=== PATIENT | female | born 1960 | race Caucasian/White ===

== ENCOUNTER 2020-02-01 14:09 | Outpatient (CLI) | payer OTHER, SELFPAY ==
--- NOTE | 2020-02-01 14:15 | CT_ITS ---
WS: [id number] CT CHEST TECHNIQUE: Contrast enhanced CT of the chest with coronal and sagittal reformatted images. CLINICAL INFORMATION: ABNORMAL CXR COMPARISON: None. DLP: 1171.[address] scans at [facility] use at least one of these dose optimization techniques: automat ed exposure control; mA and/or kV adjustment per patient size (includes targeted exams where dose is matched to clinical indication); or iterative reconstruction. FINDINGS: Mild chronic emphysematous changes. Calcified granulomas Left lower lobe. Calcified hilar nodes. Slig ht hazy atelectasis in the lingula. Subsegmental atelectasis in the right middle lobe. Slight pleural nodularity left lower lobe. Chronic right fifth and sixth anterior lateral rib fractures with callus formation. Proximal main pulmonary arteries are normal. Normal thoracic aorta. Diffuse fatty infiltration of the liver. Adrenal glands are normal. Small right renal cysts. Small es ophageal hiatal hernia. No axillary lymphadenopathy. CT/CT chest w con* [id number] IMPRESSION: 1. Mild chronic emphysematous changes. No acute pulmonary infiltrates. 2. No acute appearing rib fractures. Chronic appearing right anterolateral fif th and sixth rib fractures with callus formation. 3. Calcified granulomas. 4. No mediastinal or hilar lymphadenopathy.
[2020-02-01] MEDS: iohexol 300 mg/mL 100 mL Btl IV (14:54)
== END 2020-02-01 14:10 | disposition home or self-care (01) ==
LOC: RADWPI 14:10
PROVIDERS: Family Provider Family Medicine; PCP Nurse Practitioner; Visit Provider Nurse Practitioner
DX: R93.89 Abnormal findings on diagnostic imaging of other specified body structures (principal)
CPT/HCPCS: 71260; Q9967

== ENCOUNTER 2020-04-26 14:35 | Outpatient (RCR) | payer OTHER, SELFPAY | END 2020-05-03 23:59 | disposition home or self-care (01) | LOC: SPT 14:35 | PROVIDERS: PCP Nurse Practitioner; Referring Provider Nurse Practitioner; Visit Provider Nurse Practitioner | DX: M54.6 Pain in thoracic spine (principal) | CPT/HCPCS: 97110; 97161 ==

== ENCOUNTER 2020-07-05 09:41 | Outpatient (CLI) | payer OTHER, SELFPAY ==
--- NOTE | 2020-07-05 09:51 | XR_ITS ---
WS: [id number] CERVICAL SPINE 3 VIEWS HISTORY: PAIN DECREASE ROM COMPARISON: None available. Normal cervical alignment with no fracture or destructive process. Disc spaces and vertebral body heights are well-maintained. Soft tissues are normal. Postsurgical hardware is noted over the posterior occipital region. XR/XR cervical spine 3V* [id number] IMPRESSION: No significant cervical spine disease.
--- NOTE | 2020-07-05 09:51 | XR_ITS ---
WS: [id number] RIGHT ANKLE: 2 VIEW(S) TECHNIQUE: AP and lateral. HISTORY: Pain with decreased range of motion. COMPARISON: None available. Normal anatomic alignment with no fracture or dislocation. No asymmetry. No fracture. No osteochondral lesion. No significant degenerative changes at the joint spaces. Small calcaneal spur measures 7 mm. XR/XR ankle RT 2V [id number] IMPRESSION: Small calcaneal spur. No fracture.
== END 2020-07-05 09:42 | disposition home or self-care (01) ==
LOC: RAD 09:46
PROVIDERS: PCP Nurse Practitioner; Visit Provider Dermatology
DX: M25.571 Pain in right ankle and joints of right foot (principal); M54.2 Cervicalgia; M77.31 Calcaneal spur, right foot
CPT/HCPCS: 72040; 73600

== ENCOUNTER 2020-10-06 10:25 | Outpatient (CLI) | payer OTHER, SELFPAY ==
[2020-10-06 11:00] VITALS: BMI 38.6
--- NOTE | 2020-10-06 11:01 | ECG_ITS ---
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 Interpretive Statements NAME OF STUDY: LEXISCAN SESTAMIBI STRESS TEST INDICATION: [Chest Pain] Procedure: The baseline blood pressure was 170/98 mmHg with a heart rate of 67 bpm. The electrocardiogram showed normal sinus rhythm with normal ST and T's. The Lexiscan was infused for a duration of 20 seconds. A total of 0.4 mg of Lexiscan was infused. The stress phase was continued for a total of 5 minutes. Heart rate at end of stress phase was 78 bpm, with a blood pressure 143/81 mmHg. The EKG at the peak infusion revealed sinus rhythm with no significant ST-T wave changes. Sestamibi was injected 20 seconds after Lexiscan infusion. Blood pressure at the end of recovery phase was 152/86 mmHg with a heart rate of 76 bpm. No significant changes during recovery phase. Conclusion: 1. Normal EKG response to Lexiscan infusion. 2. No Lexiscan induced chest pain or cardiac arrhythmia. 3. Normal blood pressure and heart rate response. 4. Sestamibi/sestamibi perfusion scan pending; see separate report. Electronically Signed On 10-06-2020 18:55:53 RESEARCH ENVIRONMENTAL ENGINEER by Bob Schultz M.D. [id number]
--- NOTE | 2020-10-06 11:01 | NMCV_ITS ---
NM yo perf SPECT r/s* [id number] Lolly Levy Age: 59 Gender: F : 1960 Exam Date: 10/06/2020 11:01 Ordering Phys: Bob Schultz M.D ([email or web address]) Technologist: CISCO Cornejo Exam Location: [facility] Indications: CHEST PAIN STRESS TEST Please see separate stress test report in Ephiphany for full findings IMAGE PROTOCOL Rest/Stress 1 Lexiscan Day Radiopharmaceutical Dose (mCi) Administration Site Administered by Rest: Tc-99m 10.5 IV CISCO Oneal Sestamibi Stress:Tc-99m 32.6 IV CISCO Cornejo Sestamicarina Rest: 06-Oct-2020 60 Discovery 630 Stress: 06-Oct-2020 30 Discovery 630 0.4mg Lexiscan. Supine position only as patient was unable to lay prone. SPECT RESULTS Technical Quality: Excellent Raw Data Analysis: Normal Image Corrections: No attenuation or motion correction applied Summed Stress Score: 3 Summed Rest Score: 4 Summed Difference Score: 1 PERFUSION FINDINGS There is persistent defect perfusion defect of apical wall both on rest and stress. This represents prior infarct vs attenuation artifact. No evidence of ischemia is noted. FUNCTIONAL RESULTS (calculated via Gated SPECT) Stress Image LV EF (%): 73 Stress EDV (mL):77 TID: 1.26 Stress ESV (mL):21 FUNCTIONAL FINDINGS: There is normal left ventricular systolic function. Elevated transient ischemic dilation ratio of 1.26 is noted. IMPRESSIONS 1. Fixed perfusion defect of apical wall is noted. This likely represents prior infarct or attenuation artifact. No evidence of ischemia is noted. 2. LV systolic function is normal with EF of 73%. 3. Elevated transient ischemic dilation ratio of 1.26 is noted. This could represent subendocardial ischemia. Clinical correlation is needed. Bob Schultz MD (Electronically Signed) Final Date: 06 October 2020 17:00 S
--- NOTE | 2020-10-06 12:42 | SUR.PREOP ---
Patient reports no pain or discomfort prior to the start of the procedure.
[2020-10-06] MEDS: regadenoson 0.4 Mg/5 ml Syringe IVP (12:43)
[2020-10-06 13:56] VITALS: BP 154/83; PULSE 83
== END 2020-10-06 10:26 | disposition home or self-care (01) ==
LOC: RAD 10:33 → CDL 10:57
PROVIDERS: PCP Nurse Practitioner; Visit Provider Internal Medicine
DX: R07.9 Chest pain, unspecified (principal)
CPT/HCPCS: 78452; 93017; A9500; J2785

== ENCOUNTER 2021-03-01 13:48 | Outpatient (CLI) | payer OTHER, SELFPAY ==
--- NOTE | 2021-03-01 13:56 | MM_ITS ---
WS: [id number] BILATERAL SCREENING DIGITAL MAMMOGRAM WITH CAD HISTORY: SCREENING COMPARISON: 08/06/2018 and 01/30/2017 Bilateral CC and MLO views submitted. Computer aided detection analyzed. Breast composition: There are scattered areas of fibroglandular density. No suspicious masses, microc alcifications or architectural distortion. Asymmetry in the posterior central LEFT breast seen best o n the CC projection is stable over multiple prior years. Benign calcifications in each breast. MM/[place] [id number] IMPRESSION: BI-RADS: 2-Benign FOLLOW UP: 1 Year Follow-up
== END 2021-03-01 13:49 | disposition home or self-care (01) ==
LOC: RADSHAW 13:52
PROVIDERS: PCP Nurse Practitioner; Visit Provider Nurse Practitioner
DX: Z12.31 Encounter for screening mammogram for malignant neoplasm of breast (principal)
CPT/HCPCS: 77067

== ENCOUNTER → 2021-06-05 15:25 | Outpatient (BNVA) | payer OTHER, SELFPAY | PROVIDERS: PCP Nurse Practitioner; Visit Provider Internal Medicine | DX: E78.5 Hyperlipidemia, unspecified (principal); E11.9 Type 2 diabetes mellitus without complications; R07.9 Chest pain, unspecified | CPT/HCPCS: 80048; 83735 ==

== ENCOUNTER → 2022-01-02 13:51 | Outpatient (BNVA) | payer OTHER, SELFPAY | PROVIDERS: PCP Nurse Practitioner; Visit Provider Internal Medicine | DX: E78.5 Hyperlipidemia, unspecified (principal); E11.9 Type 2 diabetes mellitus without complications; R07.9 Chest pain, unspecified | CPT/HCPCS: 99213 ==

== ENCOUNTER → 2022-07-10 13:01 | Outpatient (BNVA) | payer OTHER, SELFPAY | PROVIDERS: PCP Nurse Practitioner; Visit Provider Internal Medicine | DX: R07.9 Chest pain, unspecified (principal); E78.5 Hyperlipidemia, unspecified; E11.9 Type 2 diabetes mellitus without complications | CPT/HCPCS: 99214 ==

== ENCOUNTER 2022-12-27 15:06 | Outpatient (CLI) | payer OTHER, SELFPAY ==
--- NOTE | 2022-12-27 15:13 | MM_ITS ---
WS: [id number] BILATERAL 3D TOMOSYNTHESIS DIGITAL SCREENING MAMMOGRAPHY WITH CAD CLINICAL INFORMATION: SCREENING HISTORY: Screening mammogram. No current complaints. COMPARISON: March 01, 2021 TECHNIQUE: Bilateral CC and MLO views. FINDINGS: Scattered fibroglandular densities bilaterally. No suspicious focal mass, asymmetry, calcifications, or architectural distortion. No evidence of malignancy. A few incidental punctate calcifications. MM/[place] [id number] IMPRESSION: BI-RADS: 2-Benign FOLLOW UP: 1 Year Follow-up Recommend return to annual screening mammography.
== END 2022-12-27 15:07 | disposition home or self-care (01) ==
PROVIDERS: PCP Nurse Practitioner; Visit Provider Nurse Practitioner
DX: Z12.31 Encounter for screening mammogram for malignant neoplasm of breast (principal)
CPT/HCPCS: 77063; 77067

== ENCOUNTER → 2023-01-08 13:13 | Outpatient (BNVA) | payer OTHER, SELFPAY | PROVIDERS: PCP Nurse Practitioner; Visit Provider Nurse Practitioner Family | DX: Z87.898 Personal history of other specified conditions (principal); I10 Essential (primary) hypertension; Z79.82 Long term (current) use of aspirin | CPT/HCPCS: 99213 ==

== ENCOUNTER 2023-04-09 14:13 | Emergency (ER) | payer OTHER, SELFPAY ==
--- NOTE | 2023-04-09 14:23 | ECG_ITS ---
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 Measurements Intervals [place] Rate: 71 P: 36 ID: 170 QRS: 72 QRSD: 94 T: 5 QT: 385 QTc: 421 Interpretive Statements SINUS RHYTHM No previous ECG available for comparison Electronically Signed On 04-09-2023 16:49:57 CDT by Marita Garay M.D. [id number]
[2023-04-09 14:25] VITALS: BP 160/100; PULSE 74; RESP 14; TEMP 36.7; O2SAT 96; BMI 35.4
--- NOTE | 2023-04-09 14:27 | XRR_ITS ---
PROCEDURE INFORMATION: Exam: XR Chest Exam date and time: 04/09/2023 2:35 PM Age: 62 years old Clinical indication: Abnormal findings; Abnormal ekg; Prior surgery; Surgery date: 6+ months; Surgery type: Breast; Additional info: Chest pain TECHNIQUE: Imaging protocol: Radiologic exam of the chest. Views: 1 view. COMPARISON: CT chest w con* [id number] 02/01/2020 2:43 PM FINDINGS: Lungs: There is a granuloma in the left perihilar region. No consolidation. Pleural spaces: Unremarkable. No pleural effusion. No pneumothorax. Heart/Mediastinum: Unremarkable. No cardiomegaly. Bones/joints: Unremarkable. XR/XR chest 1V portable [id number] IMPRESSION: 1. No acute findings. 2. Stable left lung granuloma
[2023-04-09 14:32] VITALS: BP 157/94; PULSE 70; TEMP 36.6; O2SAT 96
[2023-04-09 15:17] LABS: Basophils # 0.1 10^3/uL (0.0-0.1); Basophils % 1.1 %; Eosinophils # 0.2 10^3/uL (0.0-0.8); Eosinophils % 2.6 %; Hematocrit 44.8 % (37.0-47.0); Hemoglobin 14.5 g/dL (11.5-15.3); Lymphocytes # 2.2 10^3/uL (0.8-4.8); Lymphocytes % 32.7 %; Mean Corpuscular HGB Conc 32.4 g/dL (30.0-36.0); Mean Corpuscular Hemoglobin 29.2 pg (28.0-34.0); Mean Corpuscular Volume 90.1 fl (81-99); Mean Platelet Volume 10.6 fL (7.4-10.4); Monocytes # 0.5 10^3/uL (0.2-0.9); Monocytes % 7.5 %; Neutrophils % 55.8 %; Nucleated Red Blood Cells % 0 %; Platelet Count 240 10^3/cmm (130-400); Red Blood Count 4.97 10^6/uL (4.1-5.3); Red Cell Distribution Width 12.3 % (12.1-15.1); White Blood Count 6.6 10^3/uL (4.0-10.0)
[2023-04-09 15:36] LABS: Troponin(5th) Baseline 6 ng/L (0-10)
[2023-04-09 15:48] LABS: Alanine Aminotransferase 30 U/L (0-33); Albumin Level 3.9 g/dL (3.5-5.2); Alkaline Phosphatase 146 U/L (35-105); Anion Gap 17.9 (5-19); Aspartate Amino Transferase 19 U/L (0-32); Blood Urea Nitrogen 12 mg/dL (8-23); Calcium 9.4 mg/dL (8.5-10.5); Carbon Dioxide 21 mmol/L (22-29); Chloride 99 mmol/L (98-107); Globulin 3.6 g/dL (1.3-4.6); Glomerular Filtration Rate 125.9 mL/min (90-130); Glucose 325 mg/dL (65-115); Osmolality Calculated 290 mOsm/kg (285-295); Potassium 3.9 mmol/L (3.5-5.1); Sodium 134 mmol/L (136-145); Total Bilirubin 0.4 mg/dL (0.15-1.2); Total Protein 7.5 g/dL (6.6-8.7)
--- NOTE | 2023-04-09 16:27 | ECG_ITS ---
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 Measurements Intervals [place] Rate: 63 P: 41 NC: 171 QRS: 65 QRSD: 88 T: 9 QT: 408 QTc: 418 Interpretive Statements SINUS RHYTHM Compared to ECG 04/09/2023 14:23:54 No significant changes Electronically Signed On 04-10-2023 6:23:46 CDT by Marita Garay M.D. [id number]
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
--- NOTE | 2023-04-09 17:29 | CTR_ITS ---
PROCEDURE INFORMATION: Exam: CT Head Without Contrast Exam date and time: 04/09/2023 5:41 PM Age: 62 years old Clinical indication: Pain; Headache; Prior surgery; Surgery date: 6+ months; Surgery type: Tumor removed; Additional info: Headaches, HX of brain tumor TECHNIQUE: Imaging protocol: Computed tomography of the head without contrast. Radiation optimization: All CT scans at this facility use at least one of these dose optimization techniques: automated exposure control; mA and/or kV adjustment per patient size (includes targeted exams where dose is matched to clinical indication); or iterative reconstruction. REPORTING DATA: Count of CT and Cardiac NM exams in prior 12 months: This patient has received 0 known CTs and 0 known cardiac nuclear medicine studies in the 12 months prior to the current study. COMPARISON: CT head wo con* [id number] 06/04/2019 8:02 PM RADIATION DOSE METRICS: Total DLP (mGy-cm): 1036.28 FINDINGS: Brain: Normal. No hemorrhage. Unremarkable white matter. No mass effect. Cerebral ventricles: No ventriculomegaly. Paranasal sinuses: Visualized sinuses are unremarkable. No fluid levels. Mastoid air cells: Visualized mastoid air cells are well aerated. Bones/joints: There is a craniotomy defects seen in the left occipital bone stable since prior examination. Of call This finding was No acute fracture. Soft tissues: Unremarkable. Other findings: No interval changes are noted comparing to prior examination CT/CT head wo con* [id number] IMPRESSION: 1. No acute intracranial abnormality. 2. Craniotomy defect left occipital bone stable since prior
[2023-04-09 17:55] LABS: Estmated Average Glucose 301; Hemoglobin A1C 12.1 % (4.0-6.0)
[2023-04-09 18:09] LABS: Troponin 5 2HR Delta 0 ABS# (0-10)
== END 2023-04-09 19:15 | disposition home or self-care (01) ==
PROVIDERS: Physician Assistant; Emergency Provider Emergency Medicine; PCP Nurse Practitioner
DX: R07.89 Other chest pain (principal); E11.9 Type 2 diabetes mellitus without complications
CPT/HCPCS: 36415; 70450; 71045; 80053; 83036; 84484; 85025; 93005; 99285

== ENCOUNTER 2023-05-03 09:21 | Outpatient (CLI) | payer OTHER, SELFPAY ==
[2023-05-03 09:33] VITALS: BMI 35.4
--- NOTE | 2023-05-03 09:35 | NMCV_ITS ---
NM yo perf SPECT r/s* [id number] Lolly Levy Age: 62 Gender: F : 1960 Exam Date: 05/03/2023 09:35 Ordering Phys: Babs Contreras Technologist: CISCO Cornejo Exam Location: [facility] Indications: CHEST PAIN STRESS TEST Please see separate stress test report in Ephiphany for full findings IMAGE PROTOCOL Rest/Stress 1 Lexiscan Day Radiopharmaceutical Dose (mCi) Administration Site Administered by Rest: Tc-99m 10.6 IV Olman Sultana, SHIP WASHER Sestamibi Stress:Tc-99m 32.6 IV Olman Sultana, SHIP WASHER Sestamibi Rest: 03-May-2023 60 Discovery 630 Stress: 03-May-2023 30 Discovery 630 0.4mg Lexiscan. Images obtained in supine and prone position. SPECT RESULTS Technical Quality: Excellent Raw Data Analysis: Normal Image Corrections: No attenuation or motion correction applied Summed Stress Score: 2 Summed Rest Score: 7 Summed Difference Score: 0 PERFUSION FINDINGS There is a small in size fixed perfusion defect noted in apical wall. This is consistent with small sized prior infarct in LAD territory. No evidence of ischemia. FUNCTIONAL RESULTS (calculated via Gated SPECT) Stress Image LV EF (%): 74 Stress EDV (mL):74 TID: 0.91 Stress ESV (mL):19 FUNCTIONAL FINDINGS: There is normal left ventricular systolic function. IMPRESSIONS 1. Small sized prior infarct noted in the LAD territory. No evidence of ischemia 2. LV systolic function is normal Bob Schultz MD (Electronically Signed) Final Date: 04 May 2023 13:46 S
--- NOTE | 2023-05-03 09:35 | ECG_ITS ---
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 Interpretive Statements NAME OF STUDY: LEXISCAN SESTAMIBI STRESS TEST INDICATION: [Chest Pain, ] Procedure: At the baseline, the blood pressure was 134/89 mmHg with a heart rate of 61 bpm. The electrocardiogram showed normal sinus rhythm, normal axis with normal ST and T's. The Lexiscan was infused over a period of 20 seconds. A total of 0.4 mg of Lexiscan was infused. The stress phase was continued for a total of 5 minutes. Heart rate was at the end of stress phase was 67 bpm and a blood pressure of 126/86 mmHg. The EKG at the peak infusion revealed normal sinus rhythm with no significant ST-T wave changes. Sestamibi was injected 20 seconds after the Lexiscan infusion. Blood pressure at the end of recovery phase was 132/85 mmHg with a heart rate of 70 bpm. Conclusion: 1. Normal EKG response to Lexiscan infusion 2. No Lexiscan induced chest pain or cardiac arrhythmia. 3. Normal blood pressure and heart rate response. 4. Sestamibi/sestamibi perfusion scan pending; see separate report. Electronically Signed On 05-04-2023 14:23:40 CDT by Bob Schultz M.D. [id number]
[2023-05-03] MEDS: regadenoson 0.4 Mg/5 ml Syringe IVP (11:20)
[2023-05-03 11:31] VITALS: BP 132/85; PULSE 71
== END 2023-05-03 09:22 | disposition home or self-care (01) ==
LOC: CDL 09:23
PROVIDERS: PCP Nurse Practitioner; Visit Provider Nurse Practitioner
DX: R07.9 Chest pain, unspecified (principal); I25.2 Old myocardial infarction
CPT/HCPCS: 36415; 78452; 93017; 96374; A9500; J2785

== ENCOUNTER → 2023-05-14 13:45 | Outpatient (BNVA) | payer OTHER, SELFPAY | PROVIDERS: PCP Nurse Practitioner; Visit Provider Nurse Practitioner Family | DX: L81.4 Other melanin hyperpigmentation (principal); D22.5 Melanocytic nevi of trunk; Z71.89 Other specified counseling; L85.3 Xerosis cutis; L57.8 Other skin changes due to chronic exposure to nonionizing radiation; L56.8 Other specified acute skin changes due to ultraviolet radiation; S50.362A Insect bite (nonvenomous) of left elbow, initial encounter; W57.XXXA Bitten or stung by nonvenomous insect and other nonvenomous arthropods, initial encounter | CPT/HCPCS: 17000; 17003; 99213 ==

== ENCOUNTER → 2023-07-11 15:08 | Outpatient (BNVA) | payer OTHER, SELFPAY | PROVIDERS: PCP Nurse Practitioner; Visit Provider Internal Medicine | DX: E11.9 Type 2 diabetes mellitus without complications (principal); E78.5 Hyperlipidemia, unspecified | CPT/HCPCS: 99214 ==

== ENCOUNTER → 2023-12-06 09:25 | Outpatient (BNVA) | payer OTHER, SELFPAY | PROVIDERS: PCP Nurse Practitioner; Visit Provider Nurse Practitioner Family | DX: L21.8 Other seborrheic dermatitis (principal); L30.4 Erythema intertrigo; L57.0 Actinic keratosis; L82.0 Inflamed seborrheic keratosis; L57.8 Other skin changes due to chronic exposure to nonionizing radiation; D22.5 Melanocytic nevi of trunk | CPT/HCPCS: 17000; 17110; 99214 ==

== ENCOUNTER 2024-01-29 14:59 | Outpatient (CLI) | payer OTHER, SELFPAY ==
--- NOTE | 2024-01-29 15:30 | MM_ITS ---
WS: [id number] BILATERAL 3D TOMOSYNTHESIS DIGITAL SCREENING MAMMOGRAPHY WITH CAD CLINICAL INFORMATION: SCREENING HISTORY: Screening mammogram. No current complaints. COMPARISON: 2022 TECHNIQUE: Bilateral CC and MLO views. FINDINGS: Scattered fibroglandular densities bilaterally. No suspicious focal mass, asymmetry, calcifications, or architectural distortion. No evidence of malignancy. A few incidental punctate calcifications. IMPRESSION: MM/[place] [id number] BI-RADS: 2-Benign FOLLOW UP: 1 Year Follow-up Recommend return to annual screening mammography.
== END 2024-01-29 15:00 | disposition home or self-care (01) ==
LOC: MOBLMAM 15:08
PROVIDERS: PCP Nurse Practitioner; Visit Provider Nurse Practitioner
DX: Z12.31 Encounter for screening mammogram for malignant neoplasm of breast (principal); R92.323 Mammographic fibroglandular density, bilateral breasts
CPT/HCPCS: 77063; 77067

== ENCOUNTER → 2024-07-09 13:48 | Outpatient (BNVA) | payer OTHER, SELFPAY | PROVIDERS: PCP Nurse Practitioner; Visit Provider Internal Medicine | DX: E11.9 Type 2 diabetes mellitus without complications (principal); E78.5 Hyperlipidemia, unspecified; R07.9 Chest pain, unspecified | CPT/HCPCS: 99214 ==

== ENCOUNTER → 2024-12-07 10:24 | Outpatient (BNVA) | payer OTHER, SELFPAY | PROVIDERS: PCP Nurse Practitioner; Visit Provider Nurse Practitioner Family | DX: L23.2 Allergic contact dermatitis due to cosmetics (principal); L57.8 Other skin changes due to chronic exposure to nonionizing radiation; D22.5 Melanocytic nevi of trunk; L81.4 Other melanin hyperpigmentation; L72.0 Epidermal cyst; L57.0 Actinic keratosis; L82.0 Inflamed seborrheic keratosis; L29.89 Other pruritus; D48.5 Neoplasm of uncertain behavior of skin | CPT/HCPCS: 11102; 17110; 99213 ==

== ENCOUNTER → 2024-12-24 15:59 | Outpatient (BNVA) | payer OTHER, SELFPAY | PROVIDERS: PCP Nurse Practitioner; Visit Provider Podiatrist Foot & Ankle Surgery | DX: M79.671 Pain in right foot (principal); M72.2 Plantar fascial fibromatosis; M24.571 Contracture, right ankle | CPT/HCPCS: 73630; 99203 ==

== ENCOUNTER 2025-03-17 11:25 | Outpatient (CLI) | payer OTHER, SELFPAY ==
--- NOTE | 2025-03-17 11:20 | MM_ITS ---
WS: [id number] BILATERAL 3D TOMOSYNTHESIS DIGITAL SCREENING MAMMOGRAPHY WITH CAD CLINICAL INFORMATION: SCREENING HISTORY: Screening mammogram. No current complaints. COMPARISON: 2023 TECHNIQUE: Bilateral CC and MLO views. FINDINGS: Scattered fibroglandular densities bilaterally. No suspicious focal mass, asymmetry, calcifications, or architectural distortion. No evidence of malignancy. Incidental punctate calcifications. MM/MM [facility] tomosynthesis [id number] IMPRESSION: DENSITY: There are scattered areas of fibroglandular density. BI-RADS: 2 - Benign. FOLLOW UP: 1 Year Follow-up Recommend return to annual screening mammography.
== END 2025-03-17 11:26 | disposition home or self-care (01) ==
PROVIDERS: PCP Nurse Practitioner; Visit Provider Nurse Practitioner
DX: Z12.31 Encounter for screening mammogram for malignant neoplasm of breast (principal); R92.323 Mammographic fibroglandular density, bilateral breasts; R92.1 Mammographic calcification found on diagnostic imaging of breast
CPT/HCPCS: 77063; 77067

== ENCOUNTER → 2025-04-01 13:01 | Outpatient (BNVA) | payer OTHER, SELFPAY | PROVIDERS: PCP Nurse Practitioner; Visit Provider Podiatrist Foot & Ankle Surgery | DX: M72.2 Plantar fascial fibromatosis (principal); M24.571 Contracture, right ankle | CPT/HCPCS: 99213 ==

== ENCOUNTER → 2025-04-08 15:18 | Outpatient (BNVA) | payer OTHER, SELFPAY | PROVIDERS: PCP Nurse Practitioner; Visit Provider Internal Medicine | DX: R06.09 Other forms of dyspnea (principal); E11.9 Type 2 diabetes mellitus without complications; Z79.4 Long term (current) use of insulin; E78.5 Hyperlipidemia, unspecified; R07.9 Chest pain, unspecified; R06.02 Shortness of breath | CPT/HCPCS: 99214 ==

== ENCOUNTER 2025-07-02 13:29 | Outpatient (CLI) | payer OTHER, SELFPAY ==
--- NOTE | 2025-07-02 13:37 | MR_ITS ---
WS: [id number] MRI BRAIN WITH HIGH-RESOLUTION IMAGING THROUGH THE INTERNAL AUDITORY CANALS WITHOUT AND WITH CONTRAST HISTORY: HX OF TUMOR/FOLLOW UP LAST IMAGING IN 2017 COMPARISON: 06/19/2018 TECHNIQUE: Multiplanar, multisequence imaging is performed through the brain. Additional 3 mm imaging performed in multiple planes through the internal auditory canal. Postcontrast imaging with 20 ml's of MultiHance. No acute intracranial hemorrhage, midline shift, edema or mass effect. Very minimal atrophy and small vessel disease. 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 There are a few scattered T2 and FLAIR signal hyperintensities within the periventricular white matter. No enhancing masses. CSF following collection in the LEFT posterior fossa is unchanged. No enhancement. Ventricles are normal size. No inferior displacement of cerebellar tonsils. Clivus and pituitary gland are normal. Internal and external auditory canals: Postsurgical changes at the LEFT cerebellopontine angle. There is a very small amount of enhancement along the internal auditory canal which was also present on the study from 2018. No recurrent mass identified. No new mass identified. Cranial nerves VII and VIII complexes: Mild enhancement along the LEFT internal auditory canal is stable. Cerebellopontine angles: Normal. Paranasal sinuses: Normal. Mastoid air cells: Normal. Calvarium and scalp: Normal. Visualized [place] of [place] and dural venous sinuses demonstrate no abnormality. MR/MR iac's wo/w con* [id number] IMPRESSION: 1. 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 No recurrence. 2. There is a small amount of enhancement along the LEFT internal auditory can al which is unchanged since 2018. No evidence for recurrence or enlargement of neoplasm. 3. Normal RIGHT internal auditory canal and cerebellopontine angle. 4. CSF collection in the LEFT posterior fossa is probably an arachnoid cyst. 5. Mild small vessel disease. 6. No acute infarct.
[2025-07-02] MEDS: gadobenate dimeglumine 20 mL vial IV (14:53)
== END 2025-07-02 13:30 | disposition home or self-care (01) ==
LOC: RAD 13:30
PROVIDERS: PCP Nurse Practitioner; Visit Provider Nurse Practitioner
DX: Z09 Encounter for follow-up examination after completed treatment for conditions other than malignant neoplasm (principal); I67.89 Other cerebrovascular disease
CPT/HCPCS: 70553